=== PATIENT | male | born 1985 | race Caucasian/White ===

== ENCOUNTER 2023-11-29 12:05 | Emergency (ER) | payer BC ==
[~2023-11-29] VITALS: Ht 170.2 cm; Wt 99.8 kg
[2023-11-29 12:59] VITALS: TEMP 97.7
[2023-11-29] MEDS: SODIUM CHLORIDE 0.9% 1000ML 1,000 ML IV STA (14:46)
[2023-11-29 15:13] LABS: BASOPHILS % 0.4 % (0.0-1.0); EOSINOPHILS # (AUTO) 0.2 (0.0-0.4); EOSINOPHILS % 1.6 % (0.0-6.0); HEMATOCRIT 46.2 % (38.2-49.6); HEMOGLOBIN 14.9 g/dL (14.0-18.0); LYMPHOCYTES # (AUTO) 3.6 (1.0-3.2); MEAN CORPUSCULAR HEMOGLOBIN 30.1 pg (28-32); MEAN CORPUSCULAR HGB CONC 32.3 g/dL (31-35); MEAN CORPUSCULAR VOLUME 93.3 fL (81-99); MONOCYTES # (AUTO) 0.5 (0.2-0.8); MONOCYTES % 5.1 % (4.4-11.3); NEUTROPHILS # (AUTO) 5.3 (2.1-6.9); NEUTROPHILS % 55.1 % (38.7-80.0); PLATELET COUNT 264 x10e3/uL (140-360); RED BLOOD COUNT 4.95 x10e6/uL (4.3-5.7); RED CELL DISTRIBUTION WIDTH 12.4 % (11.7-14.4); WHITE BLOOD COUNT 9.59 x10e3/uL (4.8-10.8)
[2023-11-29 15:20] LABS: INR 0.91; PROTHROMBIN TIME 12.9 seconds (11.9-14.5)
[2023-11-29 15:21] LABS: PARTIAL THROMBOPLASTIN TIME 28.1 seconds (23.8-35.5)
[2023-11-29 15:29] LABS: ALBUMIN 4.3 g/dL (3.5-5.0); ALBUMIN/GLOBULIN RATIO 1.2 (0.8-2.0); ANION GAP 15.4 mmol/L (8-16); BILIRUBIN,TOTAL 0.9 mg/dL (0.2-1.2); CALCIUM 9.3 mg/dL (8.4-10.2); POTASSIUM 4.4 mmol/L (3.5-5.1); TOTAL PROTEIN 7.8 g/dL (6.5-8.1)
[2023-11-29] MEDS ORDERED: SODIUM CHLORIDE 0.9% 100 ML ONE (15:53)
[2023-11-29] MEDS ORDERED: IOPAMIDOL 370 MG/ML 100 ML INFUS..BTL INJ ONE (15:54)
[2023-11-29 18:00] VITALS: PULSE 70; RESP 18
[2023-11-29 18:52] VITALS: BP 124/96; PULSE 70; RESP 18; O2SAT 100
== END 2023-11-29 18:55 | disposition home or self-care (01) ==
LOC: ER 13:44
DX: K92.2 Gastrointestinal hemorrhage, unspecified (principal); R19.7 Diarrhea, unspecified; R11.10 Vomiting, unspecified
CPT/HCPCS: 36415; 74174; 80053; 85025; 85610; 85730; 99284; J2470; J7030; J7050; Q9967

== ENCOUNTER → 2023-12-06 | Day surgery (SDC) | payer BC ==
[~2023-12-06] MED LIST: FENTANYL CITRATE/PF 100MCG/2 ML INJ ONE; HYOSCYAMINE SULFATE 0.5 MG/ML INJ ONE; PROPOFOL IV EMULSION 50 ML IV ONE
[2023-12-06] MEDS: LACTATED RINGER'S 1,000 ML ONE (13:18)
[2023-12-06 15:45] VITALS: BP 127/78; PULSE 84; RESP 14; TEMP 97.8; O2SAT 96
== END | disposition home or self-care (01) ==
LOC: OR 12:38
PROVIDERS: ATTEND Internal Medicine Gastroenterology
DX: K92.2 Gastrointestinal hemorrhage, unspecified (principal); K59.00 Constipation, unspecified; K64.8 Other hemorrhoids; K64.4 Residual hemorrhoidal skin tags; Z71.3 Dietary counseling and surveillance; E66.01 Morbid (severe) obesity due to excess calories; R03.0 Elevated blood-pressure reading, without diagnosis of hypertension; Z71.89 Other specified counseling; Z68.32 Body mass index [BMI] 32.0-32.9, adult; Z80.0 Family history of malignant neoplasm of digestive organs
CPT/HCPCS: 45378; J1980; J2704; J3010; J7121